=== PATIENT | male | born 1990 | race Caucasian/White ===

== ENCOUNTER 2016-07-11 08:10 | Emergency (ER) | payer OTHER ==
[2016-07-11] MEDS ORDERED: KETOROLAC 15 MG/1 ML VIAL IM ONE (08:22)
--- NOTE | 2016-07-11 08:28 | PDOC ---
Back Pain / Injury HPI - General Chief Complaint: Neck / Back Complaint Stated Complaint: RIGHT LOWER BACK PAIN STARTING YESTERDAY Date Seen by Provider: 07/11/16 Time Seen by Provider: 08:23 Source: Patient Exam Limitations: POSITIVE: No limitations Nurse's Notes Reviewed & Considered: Yes - History of Present Illness Initial Comments: Patient comes in today with chief complaint of low back pain. Patient presently here in [place] for [facility] with the [employer] [facility] to which she belongs. Yesterday they were doing physical training, with exercises that were new to him. He began to develop low back pain which has escalated today and he comes in for evaluation. Pain is predominantly on the right lower back with some radiation into his right buttocks. He denies any numbness or tingling. Denies any hematuria or dysuria,, no fever chills or sweats, no nausea vomiting or diarrhea, no myalgias, no rashes, no headache, no cough, no shortness of breath, no chest pain. Body Location Affected: REPORTS: Back Timing: REPORTS: Abrupt Duration: <24 hours Severity: Moderate Quality: REPORTS: "Pain", Sharpness, Stabbing, Throbbing Context: REPORTS: Activity Location at Time of Onset: REPORTS: Work Modifying Factors: improves with: Nothing Associated Symptoms: REPORTS: Back pain Similar Symptoms Previously: No Recent Care Received: REPORTS: Denies Any Prior Injuries Related to Current Complaint?: No - Patient Home Medications Home Medications: Home Medications Cetirizine HCl [Zyrtec] 10 mg PO PRN PRN 07/11/16 - Patient Allergies Allergies/Adverse Reactions: Allergies Allergy/AdvReac Type Severity Reaction Status Date / Time No Known Allergies Allergy Verified 07/11/16 08:21 ROS - Limitations ROS Limitations: No Limitations Constitution: REPORTS: Denies Symptoms Cardiovascular: REPORTS: Denies Cardiac Symptoms Respiratory: REPORTS: Denies Resp Symptoms Neurological: REPORTS: Numbness (Mild numbness radiating into his right buttocks.) Gastrointestinal: REPORTS: Denies GI Symptoms Endocrine: REPORTS: Denies Symptoms Musculoskeletal: REPORTS: Back Pain Genitourinary: REPORTS: Denies Symptoms Eyes: REPORTS: Denies Symptoms ENT: REPORTS: Denies Symptoms Skin: REPORTS: Denies Skin Symptoms Lympathic: REPORTS: Denies Lympathic Symptoms Immunologic: POSITIVE: Denies Symptoms Psychiatric: POSITIVE: Denies Psych Symptoms Back Physical Assessment - General Appearance General Appearance: REPORTS: Alert, Cooperative, No Acute Distress, No Evidence of Trauma - HEENT HEENT: POSITIVE: Head Inspection Nml, Eyes Inspection Nml, Ears Inspection Nml, Nose Inspection Nml, PERRL, EOMI - Pupil Size Pupil Size: 4 mm: Bilateral - Neck Neck: POSITIVE: Non Tender, Painless ROM, Trachea Midline - Respiratory / CVS Respiratory / CVS: POSITIVE: Chest Non Tender, No Ecchymosis, Breath Sounds Normal, No Respiratory Distress, Heart Sounds Normal, Regular Rate/Rhythm - Abdomen Abdomen: Soft: (All Quadrants), Normal Bowel Sounds: (All Quadrants), Denies Tenderness: (All Quadrants) - Back Back: REPORTS: No Vertebral Tenderness, Muscle Spasm (Paraspinal muscles of the right lower lumbar and sacral region.), Limited ROM - Skin Skin: REPORTS: Intact, Normal For Race, Warm, Dry, No Rash - Extremities Extremity Assessment: Non-Tender: (ALL), Normal ROM: (ALL), No Edema: (ALL) Musculoskeletal: REPORTS: Back Pain - Neurological / Psychological Neuro / Psych: POSITIVE: Oriented X3, grape picker Normal As Tested, Motor Normal, Sensation Normal, Mood Appropriate, Affect Appropriate, Reflexes Normal Reflexes: Patellar (R): 4+, Patellar (L): 4+ Back Progress - Results Reviewed by me Xrays/CTs/US Reviewed: No - Patient's Progress Pain Medication Addressed: POSITIVE: Yes Re-Examine Time: 09:10 Status: POSITIVE: Improved MDM / ED Course: Patient was evaluated. He received IM injections of Norflex and Toradol. While awaiting x-ray of his lower back my shift ended. I have turned over care to Dr. Lance Vásquez. 4 assessment and plan please see his dictation. Working diagnosis is lower back pain. - Consult Counseled: POSITIVE: Patient, RE: DX Patient Care Time - Estimated PCT Patient Care Time (In Minutes): 15 Vital Signs - Recent Vital Signs Vital Signs: Vital Signs (Last 8 hours) Temp Pulse Resp BP Pulse Ox 07/11/16 08:10 97.3 F 66 15 143/83 97 - VS Reviewed Vital Signs Reviewed: Yes Discharge Clinical Impression: Acute low back pain Discharge Disposition: Other (Care transferred to Dr. Lance Vásquez expected discharged home.) Condition: Stable Patient Instructions Given at Discharge: Back Pain (ED) Care Transferred To: Dr. Lance Vásquez at 0900 hrs.
[2016-07-11 09:06] VITALS: RESP 15; TEMP 97.3
--- NOTE | 2016-07-11 15:26 | PDOC ---
Transfer of Care - Care Accepted Time Care Transferred: 09:00 Report from Transferring Physician Received: Yes (Dr. Moffett) MDM / ED Course: The patient presented to the emergency department with right lower back pain. He was initially evaluated per Dr. Moffett. He has received 60 mg of Toradol IM as well as 60 mg of Norflex IM. X-rays of his lumbar spine were pending at the time care was transferred. The patient was reevaluated after x-rays were obtained. He was starting to get some pain relief. He reports that he had onset of pain yesterday after performing some drills. This pain was significantly worse this morning and he had a difficult time even putting his boot on. He denies radiation of pain down his legs, urinary symptoms or any other associated symptoms. He does not have any prior history of significant back problems. He states that he occasionally gets some back pain off and on however never has had pain this bad. Home Medications: Home Medications Cetirizine HCl [Zyrtec] 10 mg PO PRN PRN 07/11/16 Cyclobenzaprine HCl [Flexeril] 10 mg PO TID PRN #20 tab 07/11/16 Allergies/Adverse Reactions: Allergies No Known Allergies Allergy (Verified 07/11/16 08:21) Vital Signs Reviewed: Yes Nurse's Notes Reviewed & Considered: Yes - Pending Patient Care Items Pending Patient Care Items: POSITIVE: X-ray Results - Expected Patient Outcome Expected Disposition: POSITIVE: Home - Re-Evaluation of Patient Disposition of Patient: POSITIVE: Discharged Counseled: POSITIVE: Patient, RE: Radiology Results, RE: DX, RE: Need for F/U Pending Test Results Documented: Yes - Consult Recommendations:: The patient was starting to get some pain relief from medications administered here in the emergency department. X-rays reveal mild scoliosis with no obvious fracture or significant degenerative change, disc spaces appear adequate. This likely represents a strain of ligaments and/or muscle. He is advised to continue ibuprofen 600 mg every 6 hours as needed for pain and was given Flexeril 10 mg every 8 hours as needed for pain/spasm. He was advised not to work or participate in the drills for the next 3 days. 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 He will return to the emergency room if any worsening or change in symptoms. Patient Care Time - Estimated PCT Patient Care Time (In Minutes): 15 Vital Signs - Recent Vital Signs Vital Signs: Vital Signs (Last 8 hours) Temp Pulse Resp BP Pulse Ox 07/11/16 08:10 97.3 F 66 15 143/83 97 - VS Reviewed Vital Signs Reviewed: Yes Discharge Clinical Impression: Acute low back pain, Lumbar strain Discharge Disposition: Discharged to Home Condition: Stable Prescriptions / Orders: Cyclobenzaprine HCl [Flexeril] 10 mg PO TID PRN #20 tab PRN Reason: Spasms Patient Instructions Given at Discharge: Back Pain (ED) Additional Instructions: X-ray of your lower back does not reveal any evidence of fracture. The pain in your right lower back is most likely related to a ligament and/or muscle strain. This should resolve over the next several days. You have been given a note not to work for the next 3 days. After that you may return to work full duty if you are not having any significant pain. If you are still having pain would recommend follow-up for reevaluation and further determination of work restrictions. Recommend ibuprofen 600 mg every 6 hours as needed for pain. In addition you been prescribed Flexeril 10 mg every 8 hours as needed for pain/ spasm. Return to the emergency room if increased pain, numbness or weakness in your legs, bowel or bladder dysfunction, fever, any worsening or change in symptoms. Recommend follow-up with primary care in 3 days if continued pain. Follow Up With: NONE,NONE [Primary Care Provider] -
--- NOTE | 2016-07-11 21:35 | DI ---
XR L-SPINE 2-3 VW,07/11/2016 8:22 AM: Clinical History: Low back pain beginning yesterday. Previous Exam: None at this facility. Findings: AP and lateral views of the lumbar spine are obtained, and demonstrate anatomic alignment without fra ctures. A nonobstructive bowel gas pattern is seen. A few peripheral vascular calcifications are noted. There is no free air. There is some very gentle levoscoliosis of the L1/2 level. Impression: Normal lumbar spine.
== END 2016-07-11 10:07 | disposition home or self-care (01) ==
LOC: ER 08:10
DX: S39.012A Strain of muscle, fascia and tendon of lower back, initial encounter (principal); M54.5 Low back pain; Y93.B9 Activity, other involving muscle strengthening exercises; Y99.1 Military activity
CPT/HCPCS: 72100; 96372; 99282 ×2; J2360; J1885